=== PATIENT | male | born 1935 | race Caucasian/White ===

== ENCOUNTER → 2017-01-18 | Outpatient (CLI) | payer MEDICARE, BC ==
[~2017-01-18] MED LIST: ALLERGY10 M1 PO; ASPIR 8181 MG PO; COUMADIN4 MG PO; COUMADIN5 MG PO; CYMBALTA30 MG PO; FISH OIL1 GM PO; FLOMAX0.4 MG PO; GLUCOPHAGE500 MG PO; KEPPRA750 MG PO; LASIX40 MG PO; LOPRESSOR50 MG PO; MELATONIN10 M2 PO; MELOXICAM15 MG PO; MULTI COMPLETE1 EACH PO; NEURONTIN300 MG PO; PAROXETINE HCL40 MG PO; SYNTHROID150 MCG PO; ZOCOR80 MG PO; ZYLOPRIM300 MG PO
== END | disposition short-term general hospital (02) ==
LOC: CLCARD 10:37
DX: I25.10 Atherosclerotic heart disease of native coronary artery without angina pectoris (principal); E66.01 Morbid (severe) obesity due to excess calories; I10 Essential (primary) hypertension; E78.5 Hyperlipidemia, unspecified; G47.30 Sleep apnea, unspecified; E11.42 Type 2 diabetes mellitus with diabetic polyneuropathy; I48.2 Chronic atrial fibrillation; Z86.73 Personal history of transient ischemic attack (TIA), and cerebral infarction without residual deficits; Z95.1 Presence of aortocoronary bypass graft

== ENCOUNTER 2017-01-21 11:27 | Observation (INO) | payer MEDICARE, BC ==
[~2017-01-21] VITALS: Ht 185.4 cm; Wt 140.6 kg
[2017-01-21] MEDS ORDERED: CYMBALTA30 MG PO (14:01)
[2017-01-21] MEDS ORDERED: SYNTHROID150 MCG PO (14:01)
[2017-01-21] MEDS ORDERED: GLUCOPHAGE500 MG PO (14:03)
[2017-01-21] MEDS ORDERED: ZYLOPRIM300 MG PO (14:04)
[2017-01-21] MEDS ORDERED: PAROXETINE HCL40 MG PO (14:05)
[2017-01-21] MEDS ORDERED: KEPPRA750 MG PO (14:05)
[2017-01-21] MEDS ORDERED: MELOXICAM15 MG PO (14:06)
[2017-01-21] MEDS ORDERED: LOPRESSOR50 MG PO (14:07)
[2017-01-21] MEDS ORDERED: LASIX40 MG PO (14:10)
[2017-01-21] MEDS ORDERED: ALLERGY10 M1 PO (14:11)
[2017-01-21] MEDS ORDERED: ASPIR 8181 MG PO (14:11)
[2017-01-21] MEDS ORDERED: FISH OIL1 GM PO (14:11)
[2017-01-21] MEDS ORDERED: ZOCOR80 MG PO (14:12)
[2017-01-21] MEDS ORDERED: COUMADIN4 MG PO (14:12)
[2017-01-21] MEDS ORDERED: FLOMAX0.4 MG PO (14:14)
[2017-01-21] MEDS ORDERED: MULTI COMPLETE1 EACH PO (14:15)
[2017-01-21] MEDS ORDERED: MELATONIN10 M2 PO (14:18)
[2017-01-21] MEDS ORDERED: NEURONTIN300 MG PO (14:19)
[2017-01-22] MEDS ORDERED: COUMADIN5 MG PO (16:27)
[2017-01-22] MEDS ORDERED: COUMADIN4 MG PO ×2 (16:28→16:29)
== END 2017-01-22 17:00 | disposition home health service (06) ==
LOC: ER 11:27 → RT 11:28 → OBS 14:25 → IP 14:25 → ER 14:45 → IP 01-22 17:00
PROVIDERS: ADMIT Family Medicine
DX: R53.1 Weakness (principal); I48.91 Unspecified atrial fibrillation; E11.9 Type 2 diabetes mellitus without complications; I11.0 Hypertensive heart disease with heart failure; I50.9 Heart failure, unspecified; E03.9 Hypothyroidism, unspecified; E78.5 Hyperlipidemia, unspecified; Z86.73 Personal history of transient ischemic attack (TIA), and cerebral infarction without residual deficits; Z87.891 Personal history of nicotine dependence; Z79.01 Long term (current) use of anticoagulants; Z79.82 Long term (current) use of aspirin; Z79.899 Other long term (current) drug therapy; Z88.0 Allergy status to penicillin; Z88.8 Allergy status to other drugs, medicaments and biological substances
CPT/HCPCS: A9150; G0378; G8978-GP; G8979-GP; J8499